=== PATIENT | female | born 1970 | race Caucasian/White ===

== ENCOUNTER 2017-07-27 18:23 | Outpatient (CLI) | payer BC | END 2017-07-27 18:24 | disposition critical access hospital (66) | LOC: EMS 18:23 | PROVIDERS: ATTEND Surgery | DX: R06.02 Shortness of breath (principal); R07.9 Chest pain, unspecified; R21 Rash and other nonspecific skin eruption | CPT/HCPCS: A0425; A0427 ==

== ENCOUNTER 2017-07-27 18:49 | Emergency (ER) | payer BC ==
[2017-07-27] MEDS ORDERED: IPRATROPIUM/ALBUTEROL 3 ML NEB INH STA (20:20)
--- NOTE | 2017-07-27 20:33 | ED Physician Documentation ---
PD HPI DYSPNEA - Stated complaint Stated Complaint: SOA/CP - Chief complaint Chief Complaint: Resp - History obtained from History obtained from: Patient - History of Present Illness Timing - onset: Today Timing - onset during: Light activity (she was outdoors and had feeling of asthma increase. Has had some seasonal allergies with itching and congestion. Had asthma increase with wheezing. Feeling of some chest discomfort and tightness today as well.) Timing - details: Gradual onset, Still present Inciting event(s): Allergic rxn/anaphylaxis. No: Out of meds, URI Improved by: Inhaler/neb Associated symptoms: Cough, Wheezing, Chest pain / discomfort. No: Fever, Palpitations, Bilateral edema Similar symptoms before: Diagnosis (asthma and allergies) Recently seen: Not recently seen Review of Systems Constitutional: denies: Fever Nose: reports: Congestion, Sinus pressure / pain. denies: Rhinorrhea / runny nose Throat: denies: Sore throat Cardiac: reports: Chest pain / pressure (lower chest) Respiratory: reports: Dyspnea, Cough, Wheezing GI: reports: Abdominal Pain (epigastric area). denies: Nausea, Vomiting, Diarrhea Skin: denies: Rash, Lesions Neurologic: reports: Generalized weakness. denies: Focal weakness, Numbness, Near syncope PD PAST MEDICAL HISTORY - Past Medical History Past Medical History: Yes Cardiovascular: None Respiratory: None, Other Neuro: None Endocrine/Autoimmune: None GI: None WATCHER LOOKOUT TOWER: None : None HEENT: Other Psych: None Musculoskeletal: Osteoarthritis Derm: None - Past Surgical History Past Surgical History: Yes Ortho: Arthroscopic surgery, Other /WATCHER LOOKOUT TOWER: Tubal ligation, Hysterectomy - Present Medications Home Medications: Ambulatory Orders Medication Instructions Recorded Confirmed Acetaminophen [Tylenol] 650 mg PO Q6H PRN 09/15/16 09/17/16 Ciprofloxacin HCl [Cipro] 500 mg PO BID #14 tablet 09/22/16 Fluconazole [Diflucan] 150 mg PO ONCE #1 tablet 09/22/16 Hydrocodone/Acetaminophen 1 each PO Q6H PRN #15 tablet 09/22/16 [Hydrocodon-Acetaminophn 10-325] Ibuprofen [Motrin] 1 tab TID PRN 09/22/16 09/22/16 Metronidazole [Flagyl] 500 mg PO TID #20 tablet 09/22/16 Stool Softener 09/22/16 Albuterol Sulf [Ventolin Hfa 1 - 2 puffs INH Q4HR PRN #1 inhaler 07/27/17 Inhaler] Cetirizine [ZyrTEC] 10 mg PO DAILY #15 tablet 07/27/17 Dexamethasone [Decadron] 4 mg PO DAILY #5 tablet 07/27/17 Famotidine [Pepcid] 20 mg PO ONCE #15 tablet 07/27/17 - Allergies Allergies/Adverse Reactions: Allergies Allergy/AdvReac Type Severity Reaction Status Date / Time contrast dye Allergy Unknown Rash Uncoded 07/27/17 19:19 - Social History Does the pt smoke?: Yes Smoking Status: Current every day smoker Does the pt drink ETOH?: Yes Does the pt have substance abuse?: No - Immunizations Immunizations are current?: Yes - POLST Patient has POLST: No PD ED PE NORMAL - Vitals Vital signs reviewed: Yes - General General: Alert and oriented X 3, No acute distress, Well developed/nourished - HEENT HEENT: Ears normal, Pharynx benign - Neck Neck: Supple, no meningeal sign, No adenopathy - Cardiac Cardiac: RRR, No murmur - Respiratory Respiratory: No: Clear bilaterally (some scattered wheezing; no coarse sounds. ) - Abdomen Abdomen: Soft, Non tender - Back Back: No CVA TTP - Derm Derm: Normal color, Warm and dry - Extremities Extremities: No tenderness to palpate, Normal ROM s pain, No edema, No calf tenderness / cord - Neuro Neuro: Alert and oriented X 3, No motor deficit, Normal speech Results - Vitals Vitals: Oxygen O2 Source Nasal cannula Oxygen Flow Rate 2 PD MEDICAL DECISION MAKING - ED course Complexity details: re-evaluated patient, considered differential, d/w patient Departure - Departure Disposition: 01 Home, Self Care Clinical Impression: Acute exacerbation of extrinsic asthma Allergic reaction Qualifiers: Encounter type: initial encounter Qualified Code(s): T78.40XA - Allergy, unspecified, initial encounter Condition: Stable Record reviewed to determine appropriate education?: Yes Instructions: ED Allergic Reaction General Other Follow-Up: Flex Cisneros MD [Primary Care Provider] - Prescriptions: Albuterol Sulf [Ventolin Hfa Inhaler] 1 - 2 puffs INH Q4HR PRN #1 inhaler PRN Reason: Shortness Of Air/Wheezing Cetirizine [ZyrTEC] 10 mg PO DAILY #15 tablet Dexamethasone [Decadron] 4 mg PO DAILY #5 tablet Famotidine [Pepcid] 20 mg PO ONCE #15 tablet Comments: Use your albuterol inhaler 2 puffs every 4 hours if needed for wheeze or shortness of breath. This sounds like an allergic reaction likely from environmental allergies. Will use Decadron steroid daily for 5 more days. Also use cetirizine daily for the next 2 weeks and famotidine another antihistamine daily for the next 2 weeks. Recheck if not improving over the next few days return sooner if you have significant symptoms again. Discharge Date/Time: 07/27/17 22:31
[2017-07-27] MEDS ORDERED: diphenhydrAMINE INJ 50 MG/ML VIAL IVP STA (20:59)
[2017-07-27] MEDS ORDERED: KETOROLAC 60 MG/2 ML VIAL IVP STA (20:59)
[2017-07-27] MEDS ORDERED: DEXAMETHASONE 10 MG/ML VIAL IVP STA (20:59)
[2017-07-27 21:32] VITALS: BP 101/54
[2017-07-27] MEDS ORDERED: MAG HYDROX/AL HYDROX/SIMETH 30 ML UDC PO STA (22:13)
[2017-07-27] MEDS ORDERED: ACETAMINOPHEN 325 MG TABLET PO STA (22:13)
== END 2017-07-27 22:31 | disposition home or self-care (01) ==
LOC: EDUNIT# → ED 18:49
DX: J45.901 Unspecified asthma with (acute) exacerbation (principal); T78.40XA Allergy, unspecified, initial encounter; F17.200 Nicotine dependence, unspecified, uncomplicated
CPT/HCPCS: 93005; 94640; 96374; 96375; 99283; 99284; A9270; J1200